=== PATIENT | male | born 1985 | race Caucasian/White ===

== ENCOUNTER 2023-08-29 10:56 | Outpatient (CLI) | payer OTHER, SELFPAY | END 2023-08-29 10:57 | disposition home or self-care (01) | PROVIDERS: PCP Nurse Practitioner Family; Visit Provider Nurse Practitioner Family | DX: Z13.220 Encounter for screening for lipoid disorders (principal); Z13.1 Encounter for screening for diabetes mellitus; H04.123 Dry eye syndrome of bilateral lacrimal glands; R10.13 Epigastric pain | CPT/HCPCS: 80061; 82947; 84443; 86039 ==

== ENCOUNTER 2023-08-31 08:30 | Outpatient (CLI) | payer OTHER, SELFPAY | END 2023-08-31 08:31 | disposition home or self-care (01) | LOC: NFLDREF 09-01 07:07 | PROVIDERS: PCP Nurse Practitioner Family; Referring Provider Nurse Practitioner Family; Visit Provider Nurse Practitioner Family | DX: R10.13 Epigastric pain (principal) | CPT/HCPCS: 87338 ==

== ENCOUNTER 2024-10-18 10:02 | Outpatient (CLI) | payer OTHER, SELFPAY | END 2024-10-18 10:03 | disposition home or self-care (01) | PROVIDERS: PCP Nurse Practitioner Family; Visit Provider Nurse Practitioner Family | DX: M10.9 Gout, unspecified (principal); Z13.228 Encounter for screening for other metabolic disorders | CPT/HCPCS: 80048; 84550 ==